=== PATIENT | female | born 1995 | race Caucasian/White ===

== ENCOUNTER 2019-01-31 21:30 | Emergency (ER) | payer SELFPAY ==
[~2019-01-31] VITALS: Ht 157.5 cm; Wt 62.0 kg
[2019-01-31] MEDS ORDERED: LIDOcaine 5% patch TP ONE (22:30)
[2019-01-31] MEDS ORDERED: ketorolac tromethamine 15mg/ml inj. IM ONE (22:30)
[2019-01-31 23:10] VITALS: BP 119/77
== END 2019-01-31 23:15 | disposition home or self-care (01) ==
LOC: ER 21:31
DX: S39.012A Strain of muscle, fascia and tendon of lower back, initial encounter (principal); X50.0XXA Overexertion from strenuous movement or load, initial encounter; Y93.89 Activity, other specified; Y92.89 Other specified places as the place of occurrence of the external cause; Y99.8 Other external cause status
CPT/HCPCS: 96372; 99283; J1885